=== PATIENT | male | born 1990 | race Hispanic/Latino ===

== ENCOUNTER 2022-02-28 08:37 | Emergency (ER) | payer SELFPAY ==
[2022-02-28] MEDS ORDERED: Ondansetron PF 4 MG/2 ML Vial ONE (09:47)
[2022-02-28 09:57] LABS: #Basophils 0.1 10x3/uL (0.0-0.2); #Monocytes 1.3 10x3/uL (0.0-1.1); #Neutrophils 7.9 10x3/uL (1.5-8.4); %Basophils 0.5 % (0.0-2.0); %Eosinophils 0.2 % (0.0-6.0); %Lymphocytes 22.9 % (18.0-47.0); %Monocytes 10.9 % (0.0-10.0); Hemoglobin 18.2 g/dL (13.5-17.5); Mean Corpuscular HGB CONC 36.6 g/dL (32.0-36.0); Mean Corpuscular Hemoglobin 30.1 pg (27.0-33.0); Mean Corpuscular Volume 82.1 fl (81.2-95.1); Platelet Count 337 10x3/uL (150-450); RBC Distribution Width 12.2 % (11.5-14.5); Red Blood Cell (RBC) Count 6.05 10x6/uL (4.32-5.72); White Blood Cell (WBC) Count 12.2 10x3/uL (3.5-10.5)
[2022-02-28 10:18] LABS: ALT (SGPT) 31 U/L (8-55); AST (SGOT) 24 U/L (5-34); Albumin 5.9 g/dL (3.5-5.0); Alkaline Phosphatase 83 U/L (40-110); Anion Gap 20 mmol/L (10-20); BUN (Urea Nitrogen) 44 mg/dL (8.9-20.6); Bilirubin, Total 1.6 mg/dL (0.2-1.2); CK (CPK) 405 U/L (30-200); Calc. Creatinine Clearance 0 mL/min (70-130); Carbon Dioxide 22 mmol/L (22-29); Chloride 93 mmol/L (98-107); Estimated GFR 40; Globulin 3.6 g/dL (2.4-3.5); Glucose 124 mg/dL (70-105); Lipase 22 U/L (8-78); Potassium 3.8 mmol/L (3.5-5.1); Protein, Total 9.5 g/dL (6.0-8.3); Sodium 131 mmol/L (136-145)
[2022-02-28 12:21] LABS: ALT (SGPT) 25 U/L (8-55); AST (SGOT) 17 U/L (5-34); Albumin 4.7 g/dL (3.5-5.0); Alkaline Phosphatase 62 U/L (40-110); Anion Gap 15 mmol/L (10-20); BUN (Urea Nitrogen) 39 mg/dL (8.9-20.6); Bilirubin, Total 1.2 mg/dL (0.2-1.2); Calc. Creatinine Clearance 0 mL/min (70-130); Carbon Dioxide 23 mmol/L (22-29); Chloride 101 mmol/L (98-107); Estimated GFR 50; Globulin 2.6 g/dL (2.4-3.5); Glucose 106 mg/dL (70-105); Potassium 3.9 mmol/L (3.5-5.1); Protein, Total 7.3 g/dL (6.0-8.3); Sodium 135 mmol/L (136-145)
== END 2022-02-28 13:00 | disposition home or self-care (01) ==
LOC: CSHERS 08:37
DX: N17.9 Acute kidney failure, unspecified (principal)
CPT/HCPCS: 36415; 80053; 82550; 83690; 83735; 85025; 96374; J2405